=== PATIENT | female | born 1995 | race Caucasian/White ===

== ENCOUNTER 2016-04-06 23:30 | Emergency (ER) | payer SELFPAY ==
[~2016-04-06] VITALS: Ht 152.4 cm; Wt 71.0 kg
[2016-04-06 23:34] VITALS: Ht 152.4 cm; Wt 71.0 kg
[2016-04-07] MEDS ORDERED: ACETAMINOPHEN 500 MG TAB PO STA (00:54)
--- NOTE | 2016-04-07 01:35 | ERD ---
ER Documentation Chief Complaint Date/Time DATE: 04/07/16 Chief Complaint Flu-like symptoms, body aches, sneezing, fever, 5 weeks HPI The patient is a 20-year-old female, A0, who is approximately 5- weeks , who presents to the Emergency Department with complaint of flu- like symptoms for the past 1-2 days. The patient reports symptoms of sneezing, subjective tactile fevers, chills, body aches, rhinorrhea and nasal congestion. She has not yet checked her temperature with a thermometer, and therefore has not had any documented fevers. She denies any cough, sore throat, ear pain, neck pain, neck stiffness or new rashes. Denies chest pain, palpitations or shortness of breath. She does state that her daughter has been experiencing similar symptoms at home. She denies any vaginal bleeding or new vaginal discharge. Denies abdominal pain, nausea, vomiting or diarrhea. ROS All systems reviewed and are negative except as per history of present illness. Medications Home Meds Active Scripts Loratadine* (Loratadine*) 10 Mg Tablet, 10 MG PO DAILY, #30 TAB Prov:LIANNE ROGERS PA-C 04/07/16 Acetaminophen* (Tylophen*) 500 Mg Capsule, 1 CAP PO Q6H Y for PAIN AND OR ELEVATED TEMP, #20 CAP Prov:LIANNE ROGERS PA-C 04/07/16 Allergies Allergies: Coded Allergies: No Known Allergy (Unverified , 04/06/16) PMhx/Soc History of Surgery: No Anesthesia Reaction: No Hx Neurological Disorder: No Hx Respiratory Disorders: No Hx Cardiac Disorders: No Hx Psychiatric Problems: No Hx Miscellaneous Medical Probl: No Hx Alcohol Use: No Hx Substance Use: No Hx Tobacco Use: No Smoking Status: Never smoker Physical Exam Vitals Vital Signs Date Time Temp Pulse Resp B/P Pulse Ox O2 Delivery O2 Flow Rate FiO2 04/06/16 23:34 99.1 131 20 135/80 99 Physical Exam GENERAL: Well-developed, well-nourished, female, in no acute distress. HEENT: Head is normocephalic, atraumatic. No scleral pallor or icterus. Conjunctiva pink. Nares are patent bilaterally. Bilaterally tympanic membranes are clear with no evidence of erythema, effusion or dulling of the light reflex. Moist mucous membranes. No exudates or erythema of the oropharynx. Uvula is midline. NECK: Supple. No masses, no tenderness, no lymphadenopathy. Trachea midline. No nuchal rigidity. No meningismus. RESPIRATORY: Lungs are clear to auscultation bilaterally. No rales, rhonchi or wheezing. Equal breath sounds. Normal expiratory effort. CARDIOVASCULAR: Tachycardic. Regular rhythm. S1 and S2 normal. No murmurs, rubs, or gallops. Distal pulses are palpable, 2+ bilaterally. Capillary refill is less than 2 seconds. GASTROINTESTINAL: Abdomen is soft, non-tender, and non-distended. No guarding, no rebound tenderness. Normal bowel sounds.No gross peritonitis. FLANK: No CVA tenderness. EXTREMITIES: No clubbing, cyanosis, or edema. Normal skin perfusion. Moving all extremities. Muscle tone is normal. No focal swelling or erythema. NEUROLOGIC: The patient is alert, awake, and oriented x 3. No focal neurologic deficits. INTEGUMENT: Skin is intact. Warm and dry. No rashes, no petechiae present. Normal turgor. PSYCHIATRIC: Cooperative. Appropriate. Results 24 hrs Laboratory Tests Test 04/07/16 01:51 Bedside Urine Blood Negative Bedside Urine Glucose (UA) Negative Bedside Urine Ketones (LAB) Trace Bedside Urine Leukocyte Esterase (L Negative Bedside Urine Nitrite (LAB) Negative Bedside Urine Protein (LAB) Trace Bedside Urine pH (LAB) 7.0 Current Medications Medications (Trade) Dose Ordered Sig/Desiree Route PRN Reason Start Time Stop Time Status Last Admin Dose Admin Acetaminophen (Tylenol Tab) 1,000 mg ONCE STAT PO 04/07/16 00:54 04/07/16 00:56 DC 04/07/16 01:01 Procedures/MDM DIAGNOSTIC TESTS AND INTERPRETATION: Microbiology INFLUENZA A & B BY EIA Final INFLU A&B BY EIA INFLUENZA A NEGATIVE (Ref Range Neg) INFLUENZA B NEGATIVE (Ref Range Neg) MEDICAL DECISION MAKING: This is a 20-year-old female presenting to the emergency department with complaint of fevers, body aches, chills, congestion and rhinorrhea. On initial presentation she was afebrile but tachycardic. Otherwise, she had no tachypnea, and a normal O2 saturation on room air. No significant abnormalities were noted on physical examination. Lungs were clear to auscultation bilaterally, with no rales, rhonchi or wheezing. No nasal flaring or signs of respiratory distress. Differential diagnosis includes, but is not limited to, pneumonia, acute respiratory distress syndrome, sinusitis, foreign body, pertussis, upper respiratory infection, asthma, allergic rhinitis, GERD, bronchitis, allergic reaction, influenza, otitis media, otitis externa, bronchitis, bronchiolitis, meningitis, croup, pharyngitis. Patient has not had any coughing, no shortness of breath, no abnormal lung sounds, and therefore I doubt pneumonia or bronchitis. Given patient's status, will not obtain x-ray imaging given low risk for pulmonary illness, and high risk of associated radiation. Shared decision making was held with the patient. Risks and benefits discussed. The patient agrees with this plan. Influenza A and B are negative. No evidence of acute sepsis, bacteremia, dehydration, meningitis or other life-threatening etiology. After rest and administration of Tylenol, the patient reports no new complaints. Upon my review and interpretation of the patient's presentation and ER course, I believe the patient's symptoms are most consistent with upper respiratory infection, likely viral in etiology. The patient had no physical examination evidence of pneumonia. Patient's neck was supple, with no altered mental status , and therefore I doubt meningitis. Oropharynx was clear, with no erythema, exudates, petechiae, and therefore I doubt pharyngitis. Urinalysis with no nitrites, no urine leukocyte esterase, and the patient has no urinary symptoms, and therefore I doubt urinary tract infection. At this time, the patient is in stable condition and not experiencing any shortness of breath, wheezing or any signs of respiratory distress, and therefore can be discharged home with a prescription for Tylenol and Loratadine and strict return precautions for signs of deteriorating or worsening condition. The patient is advised to follow up with her primary medical provider within 1-2 days for reevaluation and further management or return to the ER sooner for any worsening symptoms. I shared my medical decision making and plan with the patient, and she verbally understands and agrees with the plan for further observation and care as an outpatient. At the time of discharge all questions were answered. Departure Diagnosis: Primary Impression: Upper respiratory infection URI type: unspecified URI Qualified Code: J06.9 - Upper respiratory tract infection, unspecified type Condition: Stable Patient Instructions: Uri, Viral, No Abx (Adult) Additional Instructions: Llame al doctor MAANA y cecy vandana [place] PARA DENTRO DE 1-2 FERREIRA.Dgale a la secretaria que nosotros le instruimos hacer esta aurora.Avise o llame si lozano condicin se empeora antes de la aurora. Regresa aqui si peor o no mejor. LIANNE ROGERS PA-C Apr 07, 2016 01:35
[2016-04-07 01:49] LABS: URINE BLOOD (Dip) POC Negative (NEGATIVE)
[2016-04-07] MEDS ORDERED: ACET500C5 PO (02:45)
[2016-04-07] MEDS ORDERED: LORA10TA3 PO (02:45)
[2016-04-07 03:09] VITALS: BP 105/57; PULSE 109; RESP 18; TEMP 99.6
== END 2016-04-07 03:09 | disposition home or self-care (01) ==
LOC: FTE 23:30
DX: O99.511 Diseases of the respiratory system complicating pregnancy, first trimester (principal); J06.9 Acute upper respiratory infection, unspecified; Z3A.01 Less than 8 weeks gestation of pregnancy
CPT/HCPCS: 81003; 87400; 99283

== ENCOUNTER 2016-11-27 18:18 | Inpatient (IN) | payer OTHER ==
[~2016-11-27] VITALS: Ht 157.5 cm; Wt 76.4 kg
[~2016-11-27 18:18] MED LIST: ACET500C5 PO; LORA10TA3 PO
[2016-11-27 18:41] VITALS: BP 114/72; PULSE 96; RESP 19; Ht 157.5 cm; Wt 76.4 kg
--- NOTE | 2016-11-27 19:00 | TRIAGE ---
OB Triage Datetime Report Generated by CPN: 11/27/2016 19:00 Datetime: 11/27/2016 18:47 Maternal Assessment Level of Consciousness: Fully Conscious DTR's/Clonus: DTRs 1+ Headache: Denies Blurred Vision: No Respiratory Effort: Unlabored Breath Sounds, Left: Clear and Equal Breath Sounds, Right: Clear and Equal Nausea/Vomiting: Denies RUQ Epigastric Pain: Denies Facial Edema: None Labor Evaluation Frequency: 2-7 Monitor Mode: External Duration (sec)2399: 50-70 Quality: Mild Pattern: Normal: <= 5 Contractions in 10 Minutes Resting Tone Toppers: Relaxed Heart Rate FHR Baseline Rate: 150 Monitor Mode: External US Variability: Moderate 6-25 bpm Accelerations: 10X10 Decelerations: None Pain Assessment Pain Scale: 5 Pain Presence: Intermittent Pain Type: Contraction Pain Location: Back Pain Goal: 3 Membrane Status: Intact Datetime: 11/27/2016 18:40 EGA: 38.6 Datetime: 11/27/2016 18:20 Assessment Type: Triage Maternal Assessment Level of Consciousness: Fully Conscious DTR's/Clonus: DTRs 2+; No Clonus Headache: Denies Blurred Vision: No Respiratory Effort: Unlabored; Regular Rhythm; Equal Expansion Breath Sounds, Left: Clear and Equal Breath Sounds, Right: Clear and Equal Nausea/Vomiting: Denies RUQ Epigastric Pain: Denies Lower Extremities Edema: None Degree: None Upper Extremities Edema: None Degree: None Facial Edema: None Fall Risk Assessment History of Falling: (0) No Secondary Diagnosis: (0) No Ambulatory Aid: (0) Bedrest/Nurse Assist IV Therapy: (0) No Gait: (0) Normal/Bedrest/Immobile Mental Status: (0) Oriented to Own Ability Fall Score: 0 Fall Risk Score Definition: No Risk: No action required Vaginal Exam Dilatation (cms): 1.0 Effacement (%): 80 Station: -3 Exam By: ALPHONSE URRUTIA Vaginal Bleeding: None Cervix, Consistency: Soft Cervix, Position: Midposition Presentation 'A': Cephalic Datetime: 11/27/2016 18:10 Time of Arrival: 11/27/2016 18:10 Arrived By: Ambulatory Arrived From: Home Chief Complaint: PT CAME IN C/O UC'S Q 5-6 MIN APART AND STATES THAT SHE'S A REPEAT . DEN IES ANY OTHER COMPLAINTS AT [facility] TIME Movement: Present Contractions: Irregular Time Contractions Began: 11/27/2016 15:00 Contractions: 5-6 MIN Rupture of Membranes: Denies Vaginal Discharge: Denies Recent Sexual Intercouse: Denies Abdominal Trauma: Not Applicable Additional Patient Complaints: NONE Time Provider Notified: 11/27/2016 18:47 Provider Notified: PENG Initial Plan: MONITOR AND VE
[2016-11-27] MEDS ORDERED: CEFAZOLIN 2 GM/50 ML (PMX) 50 ML IV SCH (20:30)
[2016-11-27] MEDS ORDERED: MISOPROSTOL 200 MCG TAB PR PRN (20:30)
[2016-11-27] MEDS ORDERED: CARBOPROST 250 MCG INJ IM PRN (20:30)
[2016-11-27] MEDS ORDERED: METHYLERGONOVINE 0.2 MG INJ IM PRN (20:30)
[2016-11-27] MEDS ORDERED: OXYTOCIN 30 UNITS/LR 500 ML IV PRN (20:30)
[2016-11-27 20:39] LABS: ABNORMAL IP MESSAGE 1; BASOPHILS % 0.4 % (0.0-2.0); EOSINOPHILS % 0.4 % (0.0-7.0); HEMATOCRIT 32.7 % (37.0-47.0); HEMOGLOBIN 10.6 g/dl (12.0-16.0); LYMPHOCYTES # 1.8 10^3/ul (0.8-2.9); LYMPHOCYTES % 16.5 % (15.0-51.0); MEAN CORPUSCULAR HEMOGLOBIN 26.7 pg (29.0-33.0); MEAN CORPUSCULAR HGB CONC 32.4 g/dl (32.0-37.0); MEAN CORPUSCULAR VOLUME 82.4 fl (82.0-101.0); MEAN PLATELET VOLUME 13.3 fl (7.4-10.4); MONOCYTE # 0.6 10^3/ul (0.3-0.9); MONOCYTES % 5.2 % (0.0-11.0); NEUTROPHIL # 8.5 10^3/ul (1.6-7.5); NEUTROPHILS % 76.9 % (39.0-77.0); PLATELET COUNT 223 10^3/UL (140-415); RED BLOOD COUNT 3.97 10^6/ul (4.20-5.40); RED CELL DISTRIBUTION WIDTH 13.8 % (11.5-14.5); WHITE BLOOD COUNT 11.1 10^3/ul (4.8-10.8)
[2016-11-27 20:43] LABS: POSITIVE DIFF @See below
[2016-11-27 20:54] LABS: INR 0.97; PROTIME 12.9 Sec (12.2-14.2)
[2016-11-27] MEDS: LACTATED RINGER'S 1,000 ML IV SCH (20:56)
--- NOTE | 2016-11-27 21:14 | RADRPT ---
PROCEDURE: US OB. CLINICAL INDICATION: , labor TECHNIQUE: Multiple sonographic images of the pelvis were obtained. Transabdominal imaging only w as performed. The images were reviewed on a PACS workstation. COMPARISON: No prior studies are available for comparison. FINDINGS: Assigned due date is 38 weeks 6 days. Estimated gestational age by assigned due date is 12/05/2016. The cervix was not measured. There is a single viable intrauterine gestation. Cardiac activity is present with 154 beats per min [place]. There is a cephalic presentation. Measurements were made in order to determine age. The results only partially recorded with abd ominal circumference and femur length Estimated gestational age of approximately 37 weeks 2 days. The estimated date of delivery is 12/16/2016. The EFW = 4246 g. weight is greater than 97 percentile by assigned due date. The placenta is anterior and grade 3. There is no evidence for an abruption or placenta previa. There is a paucity of amniotic fluid. The amniotic fluid index was not calculated. The adnexa were not imaged. IMPRESSION: 1. Single, live, intrauterine gestation with cephalic lie and anterior placenta which is not low-ly ing. 2. Estimated gestational age by ultrasound is 37 weeks 2 days which is earlier than expected by last menstrual period and the weight is 4246 g which is greater than 97% by last menstrual period. These discrepancies are likely due to measurement errors due to calculations being made based only on abd ominal circumference and femur length. 3. The estimated date of delivery is 12/16/2016, which may be in error due to reasons described abo ve. RPTAT: QQ .Vitaliy Mohr MD, MD Date Time Electronically viewed and signed by .Vitaliy Mohr MD, MD on 11/27/2016 21:14 .M/
[2016-11-28] MEDS: LACTATED RINGER'S 1,000 ML IV SCH (01:32)
[2016-11-28] MEDS ORDERED: TERBUTALINE 1 MG/ML INJ SC ONE (05:00)
[2016-11-28] MEDS ORDERED: ONDANSETRON 4 MG INJ ONE (09:02)
[2016-11-28] MEDS ORDERED: PHENYLephrine (100 MCG/ML) 5ML SYG ONE (09:02)
[2016-11-28] MEDS ORDERED: morphine SULFATE/PF (10 MG/10 ML) INJ ONE (09:02)
[2016-11-28] MEDS ORDERED: OXYTOCIN 10 UNIT INJ ONE (09:02)
--- NOTE | 2016-11-28 09:25 | HP ---
Date/Time of Note Date/Time of Note DATE: 11/28/16 TIME: 09:05 OB - History Hx of Present Free Text/Dictation 21 years old female 9 weeks history of previous C- section in labor admitted to [facility] being prepared for repeat section This patient has been under the care of [facility] her not complicated with gestational diabetes -induced hypertension or any other serious medical or surgical condition [employer] history [place] at age 12 history of 1 previous with section other surgery or hospitalization reported in the patient's records Review of system within normal Physical examination 5 feet 3 168 pounds, total weight gain during the 28 pound Temperature 98.2, pulse 113 respirations 17 blood pressure 117/72 Head ears nose and throat negative Supple no thyromegaly Clear to P&A Heart normal sinus rhythm no murmur Abdomen fundal height 37 cm from symphysis pubis to the height of the fundus heart rate category 1 contractions 3-5 minutes Pelvic examination deferred Extremities no edema no varicosities Impression Intrauterine at 39 weeks gestation, history of previous section, in labor Has been counseled regarding the complication of the surgery including but not limited to bowel and bladder injury infection wound hematoma, wound infection, all her questions answered she is willing to meet with the section. Chief Complaint: 39 weeks previous in labor Estimated Due Date: Dec 05, 2016 : 2 Para: 1 Care: Good Care Ultrasounds: Normal mid trimester US Obstetrical Complications: None Medical Complications: None Past Family/Social History * Past Medical, Surgical, Family and Obstetric Histories reviewed from chart. Rubella: immune RPR/VDRL: Negative GBS Status: Negative HBsAG: Negative OB Admission Exam Vital Signs Vital Signs Vital Signs Date Time Temp Pulse Resp B/P Pulse Ox O2 Delivery O2 Flow Rate FiO2 11/27/16 18:41 99.2 96 19 114/72 99 Room Air Physical Exam HEENT: WNL Heart: Rhythm Normal Lungs: Clear, Equal Abdomen: WNL Extremities: Normal Reflexes: Normal Cervical Dilatation: 1cm Effacement: 25% Station: -2 Membranes: Intact Heart Rate: 130's Accelerations: Accelerations Present Decelerations: No Decelerations Varibility: Moderate Contractions on Admission: < 5 Minutes Apart Intensity: Mild Last 72 hours Lab Results CBC & BMP 11/27/16 20:20 OB Assessment/Plan Reason for admission: other (39 weeks history of previous in labor) Induction Method: other (21 years old female history of previous admitted to [facility] at 39 weeks gestation in labor this patient has been counseled guarding the complication of the surgery including but not limited to bowel and bladder injury infection hemorrhage and hematoma she is willing to go ahead with this procedure) MEGAN KHOURY MD Nov 28, 2016 09:16
--- NOTE | 2016-11-28 10:22 | OPR ---
Operative Report Planned Procedure Free Text/Dictation 21 years old female admitted at 39 weeks gestation history of previous in labor. Procedure date Nov 28, 2016 Procedure(s) Repeat Performed by see signature line Assisting provider: RYAN FINCH Anesthesiologist: ROSITA NGO MD Pre-procedure diagnosis 39 weeks history of previous in the Anesthesia Type: spinal Procedure Description Under satisfactory spinal anesthesia, the patient was prepped and draped and placed in a supine position, tilted to the left. Pfannenstiel incision was made , carried through the subcutaneous tissue. Bleeders brought under control with electrocautery. Fascia incised to the length of the incision. Rectus muscles from the fascia, divided midline. Peritoneum exposed, entered through a transverse incision. Exploration of abdomen revealed gravid uterus normal- appearing tubes and ovary. Bladder flap was developed. Transverse incision was made in the lower segment of the uterus. Amniotic sac ruptured. Meconium stain amniotic fluid noted live baby girl was delivered from unengaged vertex with a nuchal cord 1. [] Nasal oropharyngeal suction was performed. The baby was handed to the team for immediate attention patient received 20 units of Pitocin. placenta was delivered manually intact it was meconium stain send to pathology. Uterine cavity cleaned with wet sponge and drainage established. Uterus closed in 2 layers using [Monocryl #1] in continuous fashion. Peritoneal cavity irrigated with warm saline. Sponge, needle and instrument count reported to be correct. Abdominal peritoneum closed with [2-0 chromic catgut] continuously. Rectus muscle approximated with [2-0 chromic catgut]. Fascia closed with #1 PDS [], subcutaneous tissue approximated with few interrupted 0 chromic catgut skin closed with N sorb estimated blood loss 600mL. Urine bag contained 200 mL of clear urine patient tolerated procedure well transferred to recovery room in good condition. Post-Procedure Findings: Live Baby girl Apgars 8 and 9 code cord 1, stain amniotic fluid Estimated blood loss: other (600 mL) Specimen(s): no Grafts/Implants: no Complication(s): no Pt Condition post procedure: stable Physician Certification I, the undersigned physician, hereby certify that I have discussed the procedure described in this consent form with this patient (or the patient's legal retail account representative), including: * The risk and benefits of the procedure; * Any adverse reactions that may reasonably be expected to occur; * Any alternative efficacious methods of treatment which may be medically viable ; * The potential problems that may occur during recuperation; * Potential for blood transfusion and associated risks/benefits; and * Any research or economic interest I may have regarding this treatment. I further certify that the patient/legally responsible person was encouraged to ask question and that all questions were answered. MEGAN KHOURY MD Nov 28, 2016 10:21
[2016-11-28] MEDS: OXYTOCIN 30 UNITS/LR 500 ML IV SCH ×4 (10:32→22:11)
[2016-11-28] MEDS ORDERED: NALOXONE (0.4 MG/ML) INJ IV PRN (11:00)
[2016-11-28] MEDS ORDERED: KETOROLAC 30 MG INJ IV PRN (11:00)
[2016-11-28] MEDS ORDERED: DIPHENHYDRAMINE 50 MG INJ IV PRN ×2 (11:00→21:30)
[2016-11-28] MEDS ORDERED: ONDANSETRON 4 MG INJ IV PRN ×2 (11:00→21:30)
[2016-11-28] MEDS ORDERED: morphine 2 MG INJ IV PRN ×2 (11:00→21:30)
[2016-11-28] MEDS ORDERED: OXYCODONE/ACETAMINOPHEN (5/325) TAB PO PRN ×2 (16:30)
[2016-11-28] MEDS ORDERED: CARBOPROST 250 MCG INJ IM PRN (16:30)
[2016-11-28] MEDS ORDERED: METHYLERGONOVINE 0.2 MG INJ IM PRN (16:30)
[2016-11-28] MEDS ORDERED: MISOPROSTOL 200 MCG TAB PR PRN (16:30)
[2016-11-28] MEDS ORDERED: LANOLIN 7 GM TUBE TOP PRN (16:30)
[2016-11-28] MEDS ORDERED: CEFAZOLIN 1 GM/50 ML (PMX) 50 ML IVPB SCH ×2 (16:30→18:00)
[2016-11-28] MEDS ORDERED: HYDROCODONE/APAP (5/325) TAB PO PRN ×2 (16:30)
[2016-11-28] MEDS ORDERED: OXYTOCIN 30 UNITS/LR 500 ML IV PRN (16:30)
[2016-11-28 16:44] VITALS: BP 116/79; PULSE 93; RESP 18
[2016-11-28] MEDS: SENNA/DOCUSATE NA (8.6MG/50MG) TAB PO SCH (21:00)
[2016-11-28 21:13] VITALS: BP 106/70; PULSE 98; RESP 18
[2016-11-28] MEDS ORDERED: CEFTRIAXONE 2 GM/50 ML (PMX) 50 ML IVPB ONE (21:30)
[2016-11-28] MEDS: KETOROLAC 30 MG INJ IV PRN (21:55)
[2016-11-28 22:36] LABS: ADD UMIC NO; UR ASCORBIC ACID NEGATIVE (NEGATIVE); UR BILIRUBIN (Dip) NEGATIVE (NEGATIVE); UR BLOOD (Dip) NEGATIVE (NEGATIVE); UR CLARITY CLEAR (CLEAR); UR COLOR YELLOW (YELLOW); UR GLUCOSE (Dip) NEGATIVE (NEGATIVE); UR KETONES (Dip) TRACE mg/dL (NEGATIVE); UR LEUKOCYTE ESTERASE (Dip) NEGATIVE Leu/ul (NEGATIVE); UR NITRITE (Dip) NEGATIVE (NEGATIVE); UR TOTAL PROTEIN (Dip) NEGATIVE (NEGATIVE); UR UROBILINOGEN (Dip) 1+ mg/dL (NEGATIVE)
[2016-11-28 23:35] VITALS: BP 95/55; PULSE 77; RESP 18
[2016-11-29] MEDS: OXYTOCIN 30 UNITS/LR 500 ML IV SCH ×6 (01:19→20:04)
[2016-11-29 04:30] VITALS: BP 107/63; PULSE 87; RESP 18
[2016-11-29] MEDS: KETOROLAC 30 MG INJ IV PRN ×2 (04:43→12:44)
[2016-11-29] MEDS: LACTATED RINGER'S 1,000 ML IV SCH (06:05)
[2016-11-29] MEDS ORDERED: LORATADINE 10 MG TAB PO SCH (09:00)
[2016-11-29] MEDS ORDERED: LORATADINE 10 MG TAB PO PRN (09:00)
[2016-11-29 09:02] VITALS: BP_SYST 106; BP_SYST 124; BP_DIAS 56; BP_DIAS 63; PULSE 67; PULSE 88; RESP 18
[2016-11-29 10:49] LABS: BASOPHILS % 0.3 % (0.0-2.0); EOSINOPHILS # 0.1 10^3/ul (0.0-0.5); EOSINOPHILS % 1.1 % (0.0-7.0); HEMATOCRIT 25.8 % (37.0-47.0); HEMOGLOBIN 8.3 g/dl (12.0-16.0); LYMPHOCYTES # 1.3 10^3/ul (0.8-2.9); LYMPHOCYTES % 11.8 % (15.0-51.0); MEAN CORPUSCULAR HEMOGLOBIN 26.5 pg (29.0-33.0); MEAN CORPUSCULAR HGB CONC 32.2 g/dl (32.0-37.0); MEAN CORPUSCULAR VOLUME 82.4 fl (82.0-101.0); MEAN PLATELET VOLUME 12.8 fl (7.4-10.4); MONOCYTE # 0.8 10^3/ul (0.3-0.9); MONOCYTES % 7.1 % (0.0-11.0); PLATELET COUNT 170 10^3/UL (140-415); RED BLOOD COUNT 3.13 10^6/ul (4.20-5.40); RED CELL DISTRIBUTION WIDTH 14.1 % (11.5-14.5); WHITE BLOOD COUNT 11.3 10^3/ul (4.8-10.8)
[2016-11-29] MEDS: SENNA/DOCUSATE NA (8.6MG/50MG) TAB PO SCH ×2 (10:53→21:17)
--- NOTE | 2016-11-29 13:08 | QN ---
Documentation Comment Post day 1 VSs Afebrile Abdomen soft, incision dry, bowel sounds present, patient able to pass flatus Extremities normal Ambulation encouraged MEGAN KHOURY MD Nov 29, 2016 13:08
[2016-11-29 13:42] LABS: RUBELLA ANTIBODY - IGG 1.54 index
[2016-11-29 16:10] VITALS: BP 107/62; PULSE 106; RESP 17
[2016-11-29] MEDS ORDERED: INFLUENZA VIRUS VACCINE 0.5 ML SYG IM* ONE (18:00)
[2016-11-29 20:20] VITALS: BP 115/69; PULSE 97; RESP 18
[2016-11-29] MEDS: IBUPROFEN 600 MG TAB PO SCH (21:17)
[2016-11-30] MEDS: OXYTOCIN 30 UNITS/LR 500 ML IV SCH ×2 (00:04→04:04)
[2016-11-30 04:00] VITALS: BP 107/57; PULSE 84; RESP 18
[2016-11-30] MEDS: IBUPROFEN 600 MG TAB PO SCH ×5 (05:42→23:29)
[2016-11-30 07:40] VITALS: BP 105/57; PULSE 82; RESP 16
[2016-11-30] MEDS: SENNA/DOCUSATE NA (8.6MG/50MG) TAB PO SCH ×2 (09:08→21:18)
[2016-11-30 16:20] VITALS: BP 114/60; PULSE 84; RESP 84
--- NOTE | 2016-11-30 17:06 | QN ---
Documentation Comment Post date VSS Afebrile Abdomen soft, good bowel sounds, incision dry, lochia moderate, treatment and normal, relation encouraged MEGAN KHOURY MD Nov 30, 2016 17:06
[2016-11-30] MEDS ORDERED: NA PHOSPHATE/BIPHOS 133 ML ENEMA PR ONE (17:30)
[2016-11-30 20:42] VITALS: BP 105/67; PULSE 83; RESP 18
[2016-12-01 05:05] VITALS: BP 104/65; PULSE 77; RESP 18
[2016-12-01] MEDS: IBUPROFEN 600 MG TAB PO SCH ×2 (06:17→12:46)
[2016-12-01 08:00] VITALS: BP 115/71; PULSE 79; RESP 18
[2016-12-01] MEDS: SENNA/DOCUSATE NA (8.6MG/50MG) TAB PO SCH (08:59)
[2016-12-01] MEDS ORDERED: DIPHTH/TET/ACEL PERTUSS (ADULT) 0.5 ML VIAL IM* ONE (09:00)
--- NOTE | 2016-12-01 12:19 | PD.PPDC ---
PROFESSOR OF SPORT MANAGEMENT Discharge Instruction Condition Patient Condition: Good Diet Diet: Resume Regular Diet Activity/Restrictions Activity: Normal Activity May Shower Restrictions: No Exercising No Lifting No Driving No Sexual Activity Nothing in the Vagina No [place] No Tampons, douche Wound/Drain Care Instructions Wound/Drain Care Instructions: Wash with soap and water Keep clean and dry Follow-up Follow-up with Physician: 1, Week/Weeks Return to clinic for [employer]CH[employer]IC Instructions: Fever greater than 101 Chills Worsening abdominal pain Excessive Vaginal Bleeding More than 2 pads per hour Unable to tolerate diet OB Instructions: Breast Tenderness Depression Blurried Vision Headache Surgical Instructions: Incisional Drainage Incisional Redness MEGAN KHOURY MD Dec 01, 2016 12:19
--- NOTE | 2016-12-01 12:23 | DS ---
Date/Time of Note Date/Time of Note DATE: 12/01/16 TIME: 12:20 Discharge Summary Admission/Discharge Info Admit Date/Time Nov 27, 2016 at 18:50 Discharge Date/Time December 01, 2016 at 1220 Discharge Diagnosis Post repeat date 3 instructions given, recommended to make appointment to be seen at the clinic in 1 week Patient Condition: Good Procedures Repeat Hx of Present Illness 39 weeks plus gestation history of previous Hospital Course Satisfactory uneventful Home Meds Active Scripts Loratadine* (Loratadine*) 10 Mg Tablet, 10 MG PO DAILY, #30 TAB Prov:LIANNE ROGERS PA-C 04/07/16 Acetaminophen* (Tylophen*) 500 Mg Capsule, 1 CAP PO Q6H Y for PAIN AND OR ELEVATED TEMP, #20 CAP Prov:LIANNE ROGERS PA-C 04/07/16 Follow-up Plan Post instructions given recommended to make appointment to be seen at the clinic in 1 week Primary Care Provider Care Physician No Primary Time spent on discharge: < 30 minutes MEGAN KHOURY MD Dec 01, 2016 12:23
== END 2016-12-01 13:55 | disposition home or self-care (01) | DRG 766 ==
LOC: OBT 18:18 → L-D 18:19 → OBT 18:50 → L-D 19:28 → PP1 11-28 16:50
PROVIDERS: ADMIT Obstetrics & Gynecology; ATTEND Obstetrics & Gynecology
PROC: 3E0P3VZ Introduction of Hormone into Female Reproductive, Percutaneous Approach (ICD-10-PCS; 2016-11-28)
PROC: 10D00Z1 Extraction of Products of Conception, Low, Open Approach (ICD-10-PCS; principal; 2016-11-28 09:00)
PROC: 3E00X4Z Introduction of Serum, Toxoid and Vaccine into Skin and Mucous Membranes, External Approach (ICD-10-PCS; 2016-12-01)
DX: O34.211 Maternal care for low transverse scar from previous cesarean delivery (principal); Z23 Encounter for immunization; Z37.0 Single live birth; Z3A.39 39 weeks gestation of pregnancy
CPT/HCPCS: 76815; 81003; 85025; 85610; 85730; 86592; 86706; 86762; 86850; 86900; 86901; 87340; 90686; 90715; 94760; 99464; G0463; J0690; J1200; J1885; J2274; J2370; J2405; J2590; J3105; J7120